=== PATIENT | male | born 1985 | race Caucasian/White ===

== ENCOUNTER 2020-12-14 10:13 | Emergency (ER) | payer MEDICAID ==
[2020-12-14] MEDS ORDERED: IBUPROFEN 600 MG TABLET PO STA (11:38)
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
[2020-12-14 12:27] VITALS: BP 122/81
== END 2020-12-14 12:34 | disposition home or self-care (01) ==
LOC: ED 10:13
DX: S46.912A Strain of unspecified muscle, fascia and tendon at shoulder and upper arm level, left arm, initial encounter (principal); V86.59XA Driver of other special all-terrain or other off-road motor vehicle injured in nontraffic accident, initial encounter; F17.200 Nicotine dependence, unspecified, uncomplicated
CPT/HCPCS: 73030; 99283; A9270